=== PATIENT | female | born 1950 | race Caucasian/White ===

== ENCOUNTER → 2019-02-13 | Outpatient (CLI) | payer MEDICARE, OTHER ==
[2019-02-13 12:01] LABS: Basophils % (A) 0 %; Eosinophils # (A) 0.2 k/uL (0-0.7); Eosinophils % (A) 3 %; HCT 39.6 % (34.0-46.0); HGB 12.7 gm/dL (11.4-16.0); Lymphocytes # (A) 1.7 k/uL (1.0-4.8); Lymphocytes % (A) 19 %; MCHC 32.1 g/dL (31.0-37.0); MCV 90.3 fL (80.0-100.0); Mean Platelet Volume 7.3; Monocytes # (A) 0.7 k/uL (0-1.0); Monocytes % (A) 7 %; Neutrophils # (A) 6.2 k/uL (1.3-7.7); Neutrophils % (A) 69 %; Platelet Count 280 k/uL (150-450); RBC 4.39 m/uL (3.80-5.40); RDW 14.5 % (11.5-15.5)
[2019-02-13 19:03] LABS: African American GFR (CKD) 104.6 (60.0-200.0); Albumin/Globulin Ratio 1.9 (1.60-3.17); Anion Gap 5.4 mmol/L (4.00-12.00); BUN/Creat Ratio 18.57 Ratio (12.00-20.00); Calcium 9.6 mg/dL (8.7-10.3); Carbon Dioxide 29.6 mmol/L (21.6-31.8); Globulin 2.1 g/dL (1.6-3.3); Potassium 4.3 mmol/L (3.5-5.5); Total Bilirubin 0.5 mg/dL (0.2-1.2); Total Protein 6.1 g/dL (6.2-8.2)
== END | disposition home or self-care (01) ==
LOC: LABWHC1 11:20
DX: L40.9 Psoriasis, unspecified (principal)
CPT/HCPCS: 36415; 80053; 85025

== ENCOUNTER → 2019-04-08 | Outpatient (CLI) | payer MEDICARE, OTHER ==
[2019-04-08 12:26] LABS: Basophils % (A) 0 %; Eosinophils # (A) 0.1 k/uL (0-0.7); Eosinophils % (A) 2 %; HCT 37.2 % (34.0-46.0); HGB 12.4 gm/dL (11.4-16.0); Lymphocytes # (A) 1.8 k/uL (1.0-4.8); Lymphocytes % (A) 27 %; MCH 30.4 pg (25.0-35.0); MCHC 33.3 g/dL (31.0-37.0); MCV 91.3 fL (80.0-100.0); Mean Platelet Volume 7.1; Monocytes # (A) 0.4 k/uL (0-1.0); Monocytes % (A) 7 %; Neutrophils # (A) 4.1 k/uL (1.3-7.7); Neutrophils % (A) 63 %; Platelet Count 266 k/uL (150-450); RBC 4.08 m/uL (3.80-5.40); RDW 14.4 % (11.5-15.5); WBC 6.6 k/uL (3.8-10.6)
[2019-04-08 19:17] LABS: African American GFR (CKD) 104.6 (60.0-200.0); Anion Gap 7.5 mmol/L (4.00-12.00); Calcium 9.2 mg/dL (8.7-10.3); Carbon Dioxide 30.5 mmol/L (21.6-31.8); Potassium 4.8 mmol/L (3.5-5.5); Total Bilirubin 0.5 mg/dL (0.2-1.2)
== END | disposition home or self-care (01) ==
LOC: LABWHC1 11:16
PROVIDERS: ATTEND Dermatology
DX: L40.0 Psoriasis vulgaris (principal)
CPT/HCPCS: 36415; 80053; 85025

== ENCOUNTER → 2020-05-25 | Outpatient (CLI) | payer MEDICARE, OTHER ==
[2020-05-25 10:04] LABS: Basophils % (A) 0 %; Eosinophils # (A) 0.2 k/uL (0-0.7); Eosinophils % (A) 2 %; HCT 41.6 % (34.0-46.0); HGB 13.2 gm/dL (11.4-16.0); Lymphocytes # (A) 1.8 k/uL (1.0-4.8); Lymphocytes % (A) 23 %; MCH 27.8 pg (25.0-35.0); MCHC 31.7 g/dL (31.0-37.0); MCV 87.7 fL (80.0-100.0); Mean Platelet Volume 7.3; Monocytes # (A) 0.5 k/uL (0-1.0); Monocytes % (A) 7 %; Neutrophils % (A) 67 %; Platelet Count 260 k/uL (150-450); RBC 4.74 m/uL (3.80-5.40); RDW 13.6 % (11.5-15.5); WBC 7.6 k/uL (3.8-10.6)
[2020-05-25 20:03] LABS: African American GFR (CKD) 103.9 (60.0-200.0); Albumin 4.1 g/dL (3.80-4.90); Albumin/Globulin Ratio 2.05 (1.60-3.17); Anion Gap 9.4 mmol/L (4.00-12.00); BUN/Creat Ratio 18.57 Ratio (12.00-20.00); Calcium 9.2 mg/dL (8.7-10.3); Carbon Dioxide 27.6 mmol/L (21.6-31.8); Non-African American GFR(CKD) 89.7 (60.0-200.0); Potassium 4.8 mmol/L (3.5-5.5); Total Bilirubin 0.5 mg/dL (0.2-1.2); Total Protein 6.1 g/dL (6.2-8.2)
== END | disposition home or self-care (01) ==
LOC: LABWHC1 09:29
PROVIDERS: ATTEND Dermatology
DX: L40.9 Psoriasis, unspecified (principal)
CPT/HCPCS: 36415; 80053; 85025

== ENCOUNTER 2020-06-18 20:34 | Emergency (ER) | payer MEDICARE, OTHER ==
--- NOTE | 2020-06-18 22:06 | US ---
EXAMINATION TYPE: US extremity nonvasc complt RT DATE OF EXAM: 06/18/2020 COMPARISON: NONE CLINICAL HISTORY: RLE anterior tibia cyst vs abscess. injury to right anterior tibia 10 years ago, reema mp developed shortly after and in the past 3 weeks a second, red, lump has developed. Tender to the t ouch Scanned area of concern at palpables on right anterior raymundo and it produces complex lesions that appe ar to have septated, viscous fluid and internal calcifications seen, peripheral flow noted. IMPRESSION: There are complex fluid collections in the area of concern over the anterior raymundo. These could BE hematomas or abscesses. These measure up to 2 cm in thickness.
[2020-06-19] MEDS ORDERED: DOXYCYCLINE 100 MG CAP PO STA (00:09)
--- NOTE | 2020-06-19 00:42 | ED ---
General Adult HPI - General Source: patient, RN notes reviewed, old records reviewed Mode of arrival: ambulatory Limitations: no limitations <Gibson Nur - Last Filed: 06/19/20 03:13> <Jamie Witt - Last Filed: 06/19/20 08:04> - General Chief complaint: Skin/Abscess/Foreign Body Stated complaint: R Leg Skin Issue Time Seen by Provider: 06/18/20 20:53 - History of Present Illness Initial comments: 69-year-old female patient presented for evaluation of swelling to the right anterior tibial region. Patient reports that she had a hematoma there about 10 years ago which has some continued swelling there. However the last week or so she's had a fluctuant mass anterior to it. Denies any pain in the area denies any posterior calf pain denies any fevers or chills or any other complaints. Systemic: Pt denies fatigue, fever/chills, rash. Pt denies weakness, night sweats, weight loss. Neuro: Pt denies headache, visual disturbances, syncope or pre-syncope. HEENT: Pt denies ocular discharge or irritation, otalgia, rhinorrhea, pharyngitis or notable lymphadenopathy. Cardiopulmonary: Pt denies chest pain, SOB, heart palpitations, dyspnea on exertion. Abdominal/GI: Pt denies abdominal pain, n/v/d. : Pt denies dysuria, burning w/ urination, frequency/urgency. Denies new onset urinary or bowel incontinence. MSK: Pt denies myalgia, loss of strength or function in extremities. Neuro: Pt denies new onset weakness, paresthesias. (Gibson Nur) - Related Data Home Medications Medication Instructions Recorded Confirmed Folic Acid 1 mg PO DAILY 06/18/20 06/18/20 Levothyroxine Sodium [Synthroid] 100 mcg PO DAILY 06/18/20 06/18/20 hydroCHLOROthiazide 25 mg PO DAILY 06/18/20 06/18/20 metHOTREXate sodium [Methotrexate] 12.5 mg PO WE 06/18/20 06/18/20 Previous Rx's Medication Instructions Recorded Doxycycline [Vibramycin] 100 mg PO BID 7 Days #14 capsule 06/19/20 Allergies Allergy/AdvReac Type Severity Reaction Status Date / Time Penicillins Allergy Rash/Hives Verified 06/18/20 23:00 Sulfa (Sulfonamide Allergy Rash/Hives Verified 06/18/20 23:00 Antibiotics) Review of Systems ROS Other: All systems not noted in ROS Statement are negative. <Gibson Nur - Last Filed: 06/19/20 03:13> ROS Other: All systems not noted in ROS Statement are negative. <Jamie Witt - Last Filed: 06/19/20 08:04> ROS Statement: Those systems with pertinent positive or pertinent negative responses have been documented in the HPI. Past Medical History Past Medical History: Hypertension, Thyroid Disorder History of Any Multi-Drug Resistant Organisms: None Reported Past Surgical History: Cholecystectomy Past Psychological History: No Psychological Hx Reported Smoking Status: Former smoker Past Alcohol Use History: None Reported Past Drug Use History: None Reported <Gibson Nur - Last Filed: 06/19/20 03:13> General Exam Limitations: no limitations <Gibson Nur - Last Filed: 06/19/20 03:13> - General Exam Comments Initial Comments: Constitutional: NAD, AOX3, Pt has pleasant affect. HEENT: NC/AT, trachea midline, neck supple, no lymphadenopathy. External ears appear normal, without discharge. Mucous membranes moist. Eyes PERRLA, EOM intact. There is no scleral icterus. No pallor noted. Cardiopulmonary: RRR, no murmurs, rubs or gallops, no JVD noted. Lungs CTAB in anterior and posterior bergeron. No peripheral edema. Abdominal exam: Abdomen soft and non-distended. Neuro: CN II-XII grossly intact. No nuchal rigidity. No raccon eyes, no sales sign, no hemotympanum. No cervical spinal tenderness. MSK: 2x2 cm fluctuant mass right anterior tibial region. Incision and drainage performed significant amount of purulent drainage. No posterior calf tenderness bilaterally, homans sign negative bilaterally. Posterior tibialis and radial pulse +2 bilaterally. Sensation intact in upper and lower extremities. Full active ROM in upper and lower extremities, 5/5 stregnth. (Gibson Nur) Course Vital Signs 06/18/20 06/18/20 06/18/20 20:39 22:00 23:45 Temperature 98.3 F 98.8 F 98.4 F Pulse Rate 92 77 84 Respiratory 20 18 16 Rate Blood Pressure 142/78 143/100 154/84 O2 Sat by Pulse 99 98 97 Oximetry Procedures - Incision & Drainage Consent Obtained: verbal consent Indication: abscess Site: lower extremity (right anterior tibia) Size (cm): 2 I&D Cleaning Method: Chloroprep Sterile Field Used?: Yes Scalpel Used: #11 I&D Drainage Obtained: Pus Culture Obtained?: Yes Patient Tolerated Procedure: well <Gibson Nur - Last Filed: 06/19/20 03:13> Medical Decision Making <Gibson Nur - Last Filed: 06/19/20 03:13> <Jamie Witt - Last Filed: 06/19/20 08:04> - Medical Decision Making 69-year-old female patient received 30 point abscess right anterior tibial region. Patient vital signs are stable, afebrile. Physical exam is fully 2 x 2 centimeter fluctuant abscess. Presents with a complex fluid collection they're concerned the anterior raymundo. Could be hematomas or abscesses. Measuring up to 2cm was in thickness. Incision and drainage display purulent drainage. Culture was obtained didn't patient ALLERGIES will be placed on doxycycline for 1 week. Pt will have close outpatient follow up and return precautions. Case discussed with Dr. Riojas. (Gibson Nur) I saw this patient in conjunction with the physician pastry assistant. I performed independent history and physical exam. Agree with case management. (Jamie Witt) Disposition Is patient prescribed a controlled substance at d/c from ED?: No <Gibson Nur - Last Filed: 06/19/20 03:13> <Jamie Witt - Last Filed: 06/19/20 08:04> Clinical Impression: Abscess Disposition: HOME SELF-CARE Condition: Stable Instructions (If sedation given, give patient instructions): Abscess (ED) Additional Instructions: follow-up with primary care provider tomorrow. Keep area loosely covered. Return to ER if any worsening symptoms. Prescriptions: Doxycycline [Vibramycin] 100 mg PO BID 7 Days #14 capsule Referrals: None,Stated [Primary Care Provider] - 1-2 days
[2020-06-19 00:56] VITALS: BP 154/84; PULSE 84; RESP 16; TEMP 98.4
== END 2020-06-19 00:50 | disposition home or self-care (01) ==
LOC: EC 20:34
DX: L02.415 Cutaneous abscess of right lower limb (principal); I10 Essential (primary) hypertension; E07.9 Disorder of thyroid, unspecified; Z79.890 Hormone replacement therapy; Z79.899 Other long term (current) drug therapy; Z88.0 Allergy status to penicillin; Z88.2 Allergy status to sulfonamides; Z87.891 Personal history of nicotine dependence
CPT/HCPCS: 10060; 87070; 87205; 99284

== ENCOUNTER → 2023-02-28 | Outpatient (CLI) | payer MEDICARE, OTHER ==
[2023-02-28 16:38] LABS: T4, Free (Free Thyroxine) 1.85 ng/dL (0.80-1.80)
== END | disposition home or self-care (01) ==
LOC: LABWHC1 09:04
PROVIDERS: ATTEND Internal Medicine
DX: E03.9 Hypothyroidism, unspecified (principal)
CPT/HCPCS: 36415; 84439; 84443

== ENCOUNTER → 2023-04-26 | Outpatient (CLI) | payer MEDICARE, OTHER ==
[2023-04-26 15:31] LABS: T4, Free (Free Thyroxine) 1.58 ng/dL (0.80-1.80)
== END | disposition home or self-care (01) ==
LOC: LABWHC1 07:33
PROVIDERS: ATTEND Internal Medicine
DX: E03.9 Hypothyroidism, unspecified (principal)
CPT/HCPCS: 36415; 84439; 84443